=== PATIENT | female | born 1995 | race Caucasian/White ===

== ENCOUNTER 2017-12-06 04:34 | Emergency (ER) | payer SELFPAY ==
[~2017-12-06] VITALS: Ht 167.6 cm; Wt 72.6 kg
[2017-12-06] MEDS ORDERED: ONDANSETRON HCL/PF 4 MG/2 ML VIAL ONE (04:39)
--- NOTE | 2017-12-06 04:40 | NUR ---
24 yo female bb ra from home. per EMS, patient was found outside of her home by her friends. per friends pt took GHB and alcohol. patient is responsive to painful stimuli, skin warm and dry, resp even and unlabored. patient placed on counter server, will continue to monitor
--- NOTE | 2017-12-06 04:50 | NUR ---
at bed side for eval
[2017-12-06 05:02] LABS: LYMPHOCYTES # (AUTO) 1.6 /CMM (0.8-4.8); MEAN CORPUSCULAR HEMOGLOBIN 28 PG (26.0-33.0); MEAN CORPUSCULAR HGB CONC 34 g/dl (31.0-36.0); MONOCYTES # (AUTO) 0.3 /CMM (0.1-1.30); NEUTROPHILS # (AUTO) 3.4 /CMM (1.8-8.9); WHITE BLOOD COUNT (AUTO) 5.3 K/uL (4.3-11.0)
[2017-12-06] MEDS: ONDANSETRON HCL/PF 4 MG/2 ML VIAL IVP ONE (05:02)
[2017-12-06 05:05] LABS: BASOPHILS % (AUTO) 0.3 % (0.0-2.0); EOSINOPHILS % (AUTO) 0.8 % (0.0-6.0); HEMATOCRIT 34 % (33-45); HEMOGLOBIN 11.4 g/dL (11.5-14.8); LYMPHOCYTES % (AUTO) 30.1 % (20.0-44.0); MEAN CORPUSCULAR VOLUME 81 fL (82-100); MONOCYTES % (AUTO) 5.2 % (2.0-12.0); NEUTROPHILS % (AUTO) 63.6 % (43.0-81.0); PLATELET COUNT (AUTO) 273 /CMM (150-450); RDW COEFFICIENT OF VARIATION 14.8 (11.5-15.0); RED BLOOD CELL COUNT(AUTO) 4.15 MIL/uL (4.0-5.2)
[2017-12-06 05:16] LABS: CALCIUM, SERUM 8.8 mg/dL (8.5-10.1); CREATININE 0.8 mg/dL (0.6-1.3); POTASSIUM 3.3 mmol/L (3.5-5.1)
--- NOTE | 2017-12-06 05:20 | NUR ---
patient resting in er bed, nad noted, will continue to monitor
[2017-12-06 05:23] LABS: ALBUMIN 4.4 g/dL (3.4-5.0); BILIRUBIN,DIRECT 0.1 mg/dL (0.0-0.2); BILIRUBIN,TOTAL 0.4 mg/dL (0.2-1.0); TOTAL PROTEIN, SERUM 7.9 g/dL (6.4-8.2)
[2017-12-06 05:27] LABS: SALICYLATE 0.4 mg/dL (2.8-20.0)
--- NOTE | 2017-12-06 06:53 | NUR ---
patient resting in er bed, no distress noted, skin warm and dry. will continue to monitor
--- NOTE | 2017-12-06 07:15 | NUR ---
LYING IN BED 4, AROUSABLE BY VERBAL AND TACTILE STIMULATION. A/OX3. VSS WILL CONT TO MONITOR
[2017-12-06 09:54] VITALS: BP 91/103
== END 2017-12-06 09:55 | disposition home or self-care (01) ==
LOC: EDBD 04:35 → ER 04:35
DX: R41.0 Disorientation, unspecified (principal); T42.6X1A Poisoning by other antiepileptic and sedative-hypnotic drugs, accidental (unintentional), initial encounter; T51.0X1A Toxic effect of ethanol, accidental (unintentional), initial encounter; Y92.89 Other specified places as the place of occurrence of the external cause
CPT/HCPCS: 36415; 80048-TC; 80076-TC; 82962-TC; 84703-TC; 85025-TC; A4606; G0480; J2405; Z7610